=== PATIENT | female | born 1945 | race Caucasian/White ===

== ENCOUNTER → 2017-03-04 | Day surgery (SDC) | payer MEDICARE, BC ==
[2017-03-01 12:04] VITALS: BMI 31.3
[~2017-03-04] MED LIST: ALPRAZolam 0.25 MG TAB PO PRN; ALPRAZolam 0.5 MG TAB PO PRN; ASPIRIN 325 MG TAB PO STA; ATORVASTATIN 80 MG TAB PO STA; IODIXANOL 320 MG/ML 100 ML INTRAARTER ONE; LIDOCAINE 2% INJ 20 MG/ML SQ ONE; MIDAZOLAM 2 MG/2 ML VIAL IV ONE; NITROGLYCERIN SL TABS 0.4 MG TAB SUBLINGUAL PRN; RX INFO: IV CONTRAST WAS GIVEN 1 EACH MISC MISCELLANE PRN; SODIUM CHLORIDE 0.9% 1,000 ML IV SCH; SODIUM CHLORIDE 0.9% 1,000 ML in EMPTY BAG 1 BAG IV ONE
[2017-03-04 07:28] VITALS: RESP 18
[2017-03-04] MEDS: MIDAZOLAM 2 MG/2 ML VIAL IV ONE ×2 (09:08→09:13)
[2017-03-04] MEDS: VERAPAMIL SYRINGE (5 MG/10 ML) INTRAARTER ONE ×2 (09:12→09:29)
--- NOTE | 2017-03-04 13:52 | MISC ---
Dear Dr. Connell: Ms. Mary Madison underwent a heart catheterization and that showed intermediate disease involving the mid LAD. Maximized medical treatment is recommended at this point of time. I want to thank you for allowing me to participate in her care. RAE
--- NOTE | 2017-03-04 14:03 | CC ---
CARDIAC CATHETERIZATION DATE OF PROCEDURE: 03/04/2017 PERFORMING PHYSICIAN: Win Uribe MD, [employer]. PROCEDURE PERFORMED: 1. Selective right and left coronary angiogram. 2. Left heart catheterization. 3. Left ventriculography. INDICATION: This is a pleasant 71-year-old female patient who was diagnosed with cardiomyopathy with an ejection fraction of 40%. She is also known to have pacemaker and she is also known to have paroxysmal atrial fibrillation. APPROACH: Right radial artery. COMPLICATIONS: None. LEVEL OF SEDATION: Moderate with sedation length of 24 minutes. PROCEDURE DESCRIPTION: After obtaining an informed consent, the patient was brought to the cardiac wood and wood products labourer. The right radial artery was cannulated using micropuncture technique , the micropuncture wire passed easily and I placed a 6-Nepali sheath in the right radial artery. After that, I gave the patient 2 mg of verapamil IA and 3000 units of heparin IV. After that, I did selective right and left coronary angiogram using JR4 and JL3.5 catheters. The procedure was completed without any complication. SELECTIVE CORONARY ANGIOGRAM: 1. The right coronary artery is a moderate caliber vessel and it is a nondominant vessel. It is angiographically normal. 2. The left main is a short left main, but it is angiographically normal. It bifurcates into a dominant left circumflex and left anterior descending artery. 3. The left circumflex is a large caliber vessel and it is a dominant vessel. The proximal left circumflex appeared to be angiographically normal and gives rise into first obtuse marginal branch, which appeared to be angiographically normal. The mid left circumflex is normal as well and gives rise into second OM , which appeared to be angiographically normal. The left circumflex distally is normal and bifurcates in PDA and PLV branches and both are angiographically normal. 4. The left anterior descending artery; the proximal LAD appeared to have lesion seems to be in the range of 50%. It gives rise into the first diagonal branch, which is a large caliber vessel with ostial lesion seems to be in the range of 70%. The mid LAD and distal LAD appear to be angiographically normal. HEMODYNAMICS: The left ventricular end-diastolic pressure was ( ) mmHg and no gradient was identified across the aortic valve. LEFT VENTRICULOGRAPHY: The left ventriculography was performed in WALKER projection using a power injection and the left ventricular systolic function is impaired with EF about 40% with anterior hypokinesia. CONCLUSION: 1. Normal right coronary artery. 2. Normal left main coronary artery. 3. Normal and dominant left circumflex. 4. Intermediate disease involving the proximal left anterior descending artery by the bifurcation of the first diagonal branch, which is a large caliber vessel with lesion seems to be in the range of 70%. POSTPROCEDURE MANAGEMENT: 1. Obtain a stress test as an outpatient to evaluate for any ischemia in the anterior and anterolateral wall. 2. Maximize medical treatment. 3. Follow up with the patient. RAE
[2017-03-04 15:12] VITALS: BP 116/55; PULSE 76; TEMP 98.4
== END ==
LOC: CATHCVL 06:23
PROVIDERS: ATTEND Internal Medicine Interventional Cardiology
DX: I25.10 Atherosclerotic heart disease of native coronary artery without angina pectoris (principal); I42.9 Cardiomyopathy, unspecified; I48.0 Paroxysmal atrial fibrillation; I10 Essential (primary) hypertension; E78.00 Pure hypercholesterolemia, unspecified; E78.5 Hyperlipidemia, unspecified; I73.9 Peripheral vascular disease, unspecified; E66.9 Obesity, unspecified; Z68.32 Body mass index [BMI] 32.0-32.9, adult; I49.5 Sick sinus syndrome; I44.39 Other atrioventricular block; Z95.0 Presence of cardiac pacemaker; Z90.49 Acquired absence of other specified parts of digestive tract; Z93.3 Colostomy status; Z82.49 Family history of ischemic heart disease and other diseases of the circulatory system; F17.210 Nicotine dependence, cigarettes, uncomplicated; Z79.82 Long term (current) use of aspirin; Z79.899 Other long term (current) drug therapy; Z88.2 Allergy status to sulfonamides
CPT/HCPCS: 93458; 99152; C1769; C1894; J2001; J2250; Q9967; J1644

== ENCOUNTER → 2017-11-01 | Outpatient (CLI) | payer MEDICARE, BC ==
--- NOTE | 2017-11-01 14:25 | CT ---
EXAMINATION TYPE: CT lumbar spine wo con DATE OF EXAM: 11/01/2017 2:13 PM COMPARISON: NONE HISTORY: Lumbago CT DLP: 1007.8 mGycm Automated exposure control for dose reduction was used. Unenhanced CT of the lumbar spine was performed. Bone and soft tissue window settings are submitted as well as coronal and sagittal reconstructions. Assessment spinal canal limited due to noncontrast L1-L2: There is a vacuum disc compatible severe degenerative disc disease. 3 mm retrolisthesis is no circumferential disc bulging facet arthropathy. Mild bilateral foraminal encroachment. Findings sugge st Canal stenosis. L2-L3: Severe degenerative disc disease with vacuum disc phenomenon and a 4 mm retrolisthesis. Diffus e disc bulging, facet arthropathy and ligamentum flavum hypertrophy contribute to significant canal s tenosis and bilateral foraminal encroachment. L3-L4: Moderate degenerative disc disease. There is advanced facet arthropathy and ligamentum flavum hypertrophy. Diffuse disc bulging is seen with moderate to severe central stenosis. Bilateral foramin al encroachment. L4-L5: Severe degenerative disc disease with discogenic marrow changes. Broad-based central disc prot rusion slightly greater paracentrally left is seen. Advanced facet arthropathy and ligamentum flavum hypertrophy contribute to moderate to severe canal stenosis and bilateral foraminal encroachment. L5-S1: Degenerative disc disease. There is facet arthropathy but no canal stenosis. Neural foramina r emain bilaterally. There are vascular calcifications. There is a 1.4 cm isodense lesion involving the posterior margin of the mid left kidney which should be correlated with ultrasound. Additional 7 mm hypodense lesion involving the upper pole right kidney related to hemorrhagic cyst. T hickening of the adrenal glands noted bilaterally which can be associated with hyperplasia. IMPRESSION: 1. Severe multilevel degenerative disc disease with retrolisthesis at L1-2 and L2-L3. 2. Multilevel facet arthropathy and disc bulging results in multilevel canal stenosis and foraminal e ncroachment. 3. 1.4 cm isodense mass midpole posterior margin left kidney. Ultrasound recommended.
== END ==
LOC: RADCTMAIN 13:49
PROVIDERS: ATTEND Psychiatry & Neurology Neurology
DX: M48.061 Spinal stenosis, lumbar region without neurogenic claudication (principal); M51.26 Other intervertebral disc displacement, lumbar region; M43.16 Spondylolisthesis, lumbar region; M51.36 Other intervertebral disc degeneration, lumbar region; M46.96 Unspecified inflammatory spondylopathy, lumbar region; Z88.2 Allergy status to sulfonamides
CPT/HCPCS: 72131

== ENCOUNTER 2018-06-27 09:20 | Day surgery (SDC) | payer MEDICARE, BC ==
[2018-06-20 11:44] VITALS: BMI 31.9
[~2018-06-27 09:20] MED LIST changes: -ALPRAZolam 0.25 MG TAB PO PRN; -ALPRAZolam 0.5 MG TAB PO PRN; -ASPIRIN 325 MG TAB PO STA; -ATORVASTATIN 80 MG TAB PO STA; -IODIXANOL 320 MG/ML 100 ML INTRAARTER ONE; -LIDOCAINE 2% INJ 20 MG/ML SQ ONE; -MIDAZOLAM 2 MG/2 ML VIAL IV ONE; -NITROGLYCERIN SL TABS 0.4 MG TAB SUBLINGUAL PRN; -RX INFO: IV CONTRAST WAS GIVEN 1 EACH MISC MISCELLANE PRN; -SODIUM CHLORIDE 0.9% 1,000 ML in EMPTY BAG 1 BAG IV ONE; +ceFAZolin 1,000 MG in SODIUM CHLORIDE 0.9% IRRIGATIO 250 ML IRRIGATION ONE; +ceFAZolin IN SWFI 2 GM/20 ML SYRINGE IVP ONE
[2018-06-27 09:50] VITALS: TEMP 98.6
[2018-06-27] MEDS ORDERED: LIDOCAINE 1% INJ 10MG/ML (20 ML MDV) ONE ×2 (10:43→10:53)
[2018-06-27] MEDS ORDERED: fentaNYL (PF) 50 MCG/ML 2 ML AMP ONE (10:58)
[2018-06-27] MEDS ORDERED: MIDAZOLAM 2 MG/2 ML VIAL ONE (10:58)
[2018-06-27] MEDS: MIDAZOLAM 2 MG/2 ML VIAL IV ONE ×2 (11:00→11:32)
[2018-06-27] MEDS: fentaNYL (PF) 50 MCG/ML 2 ML AMP IV ONE ×2 (11:00→11:32)
[2018-06-27] MEDS ORDERED: LIDOCAINE 1% INJ 10MG/ML (20 ML MDV) SQ ONE ×2 (11:04→11:33)
[2018-06-27] MEDS ORDERED: HYDROcodone/APAP 5-325MG 1 EACH TAB PO PRN (11:55)
[2018-06-27] MEDS ORDERED: ACETAMINOPHEN TAB 325 MG TAB PO PRN (11:55)
[2018-06-27 14:48] VITALS: BP 136/62; PULSE 78; RESP 18
--- NOTE | 2018-06-27 16:05 | P.PCN ---
Date of Procedure: 06/27/18 Preoperative Diagnosis: Battery depletion Postoperative Diagnosis: The same Procedure(s) Performed: Dual-chamber pulse generator change, temporary pacemaker implantation Description of Procedure: TEMPORARY PACEMAKER IMPLANTATION: This patient who is pacemaker dependent has reached MYKEL requiring battery replacement. Patient is advised to have temporary pacemaker during the battery change. Patient was brought to the lab in a fasting state. She was prepped and draped in the usual fashion. The right groin is infiltrated with lidocaine. Right femoral vein was entered using Seldinger technique and a 6-Slovak sheath was left in place. A 5-Slovak balloontipped temporary pacemaker wire was advanced through the sheath under fluoroscopy and was placed at the apex of the right ventricle. Satisfactory thresholds were obtained. The pacemaker was set at rate of 40 and output of 30. Patient tolerated the procedure well. No complications. Final impression: Successful implantation of temporal pacemaker without complications. PULSE GENERATOR CHANGE: HISTORY: This patient with history of dual-chamber permanent pacemaker implantation has reached MYKEL. Patient is advised to have generator change CONSENT: I have discussed the risks and benefits as related to the above mentioned procedure and both sedation/analgesia as well as necessary blood product administration. The patient has indicated understanding and acceptance of the risks of the procedure discussed. PROCEDURE: Patient was brought to the lab in a fasting state. Patient was given IV Versed and fentanyl for sedation. The skin over the existing pulse generator was infiltrated with lidocaine. An incision was made in the skin and was deepened until the pectoral fascia was exposed. Hemostasis was obtained. The existing pulse generator was pulled out of the pocket. The leads were disconnected and were checked for thresholds. Conscious Sedation: Versed 1.5 mg Fentanyl 50 g Duration 50 minutes THRESHOLDS: ATRIAL: The minimum pacing threshold was 0.5 V at a pulse width of 0.5 ms. The impedance is 381 ohms P-wave: 3 mV VENTRICULAR: The minimal patient threshold was 1 V at a pulse width of 0.5 ms. Impedance is 480 ohms R-wave: 7.6 mV THE LEADS: ATRIAL: This is manufactured by [employer] lead model number is 5076/45 and the serial number is [id number] VENTRICULAR: This is manufactured by [employer]. Model number is 5076/52. Serial number is [id number] THE EXPLANTED DEVICE: This is manufactured by [employer]. Model number is [id number] and the serial number is [id number] THE NEW DEVICE:. This is manufactured by [employer]. Model number is [id number] and the serial number is [id number]. The leads were then connected to a new pulse generator. Pacemaker seems to function normally. The pocket was irrigated with antibiotics. The pocket was closed in the usual fashion. Pectoral fascia was closed with 2-0 Prolene, the subcutaneous tissue was closed with 3-0 Prolene and the skin was closed with 4- 0 Prolene. Patient tolerated the procedure well . Patient will be monitored on the telemetry unit for 2-3 hours. If stable patient be discharged home later today. PLAN: Continue monitoring her for next 2 hours. If stable patient will be discharged home to continue home medications. She is given a prescription for pain medication and also prophylactic antibiotics. The patient will keep the initiation and dry until seen in the office in one week. FALLOW UP: With Dr. Zamudio in one week
== END 2018-06-27 16:00 | disposition home or self-care (01) ==
LOC: CATHEP 09:20
PROVIDERS: ATTEND Internal Medicine Cardiovascular Disease
DX: I25.5 Ischemic cardiomyopathy (principal); Z45.010 Encounter for checking and testing of cardiac pacemaker pulse generator [battery]; I25.10 Atherosclerotic heart disease of native coronary artery without angina pectoris; I10 Essential (primary) hypertension; I48.2 Chronic atrial fibrillation; E78.5 Hyperlipidemia, unspecified; I73.9 Peripheral vascular disease, unspecified; Z82.49 Family history of ischemic heart disease and other diseases of the circulatory system; Z87.891 Personal history of nicotine dependence; E66.9 Obesity, unspecified; Z68.32 Body mass index [BMI] 32.0-32.9, adult; I49.5 Sick sinus syndrome; Z79.82 Long term (current) use of aspirin; Z79.899 Other long term (current) drug therapy; Z88.2 Allergy status to sulfonamides
CPT/HCPCS: 33228; C1769 ×3; C1894; C1785; J2250; J2001; J3010; J0690

== ENCOUNTER 2018-11-17 12:17 | Day surgery (SDC) | payer MEDICARE, BC ==
[2018-11-07 18:09] VITALS: BMI 30.9
[~2018-11-17 12:17] MED LIST changes: +HYDROmorphone 0.5 MG/0.5 ML SYRINGE IVP PRN; +LACTATED RINGERS 1,000 ML IV SCH; +MORPHINE SULFATE 2 MG/ML SYRINGE IV PRN; +ONDANSETRON 4 MG/2 ML VIAL IVP PRN; +Pre Op ABX Message 1 EACH MISC MISCELLANE ONE; -SODIUM CHLORIDE 0.9% 1,000 ML IV SCH; -ceFAZolin 1,000 MG in SODIUM CHLORIDE 0.9% IRRIGATIO 250 ML IRRIGATION ONE; -ceFAZolin IN SWFI 2 GM/20 ML SYRINGE IVP ONE
[2018-11-17 12:56] VITALS: RESP 18; TEMP 97.9
[2018-11-17] MEDS ORDERED: LIDOCAINE 1% 20 ML VIAL (10MG/ML) FOR IV START INTRADERMA ONE (12:57)
[2018-11-17] MEDS ORDERED: PROPOFOL 10 MG/ML 20 ML VIAL IV ONE (14:51)
[2018-11-17] MEDS ORDERED: MIDAZOLAM 2 MG/2 ML VIAL ONE (14:51)
[2018-11-17] MEDS ORDERED: fentaNYL (PF) 50 MCG/ML 2 ML AMP ONE (14:51)
[2018-11-17] MEDS ORDERED: LIDOCAINE 1%-EPI 1:100,000 20 ML VIAL SQ ONE ×2 (15:17)
[2018-11-17 16:26] VITALS: PULSE 77
[2018-11-17 16:42] VITALS: BP 121/61
--- NOTE | 2018-11-17 17:40 | P.OP ---
Date of Procedure: 11/17/18 Preoperative Diagnosis: 1. Right trigger thumb 2. Right index trigger finger 3. Right middle trigger finger Postoperative Diagnosis: 1. Right trigger thumb 2. Right index trigger finger 3. Right middle trigger finger Procedure(s) Performed: 1. Right trigger thumb release 2. Right index trigger finger release 3. Right middle trigger finger release Anesthesia: MAC, local Surgeon: Rob Mathew Estimated Blood Loss (ml): 3 Pathology: none sent Condition: stable Disposition: PACU Indications for Procedure: The patient is a pleasant 73-year-old female who was diagnosed with right index and middle trigger fingers and a right trigger thumb. Treatment options (and associated risks and benefits) were discussed in the office. The patient elected to proceed with surgical release. In preop, the patient denied any additional questions or concerns. Consent forms were signed. The operative sites were confirmed and marked. Description of Procedure: The patient was positioned supine with the operative limb on an arm board. Monitored anesthesia was administered. Using aseptic technique, local anesthetic was injected into the subcutaneous tissues tissues around the planned incisions. A tourniquet was placed on the right upper extremity which was then prepped and draped in standard, sterile fashion. A timeout was performed which confirmed the patient, this operative side, the sites and the procedures to be performed: all team members expressed agreement. The hand was exsanguinated with an Esmarch and the tourniquet was inflated. The thumb was approached first. Loupe magnification was utilized throughout the case for optimum visualization. A transverse incision was marked in the MCP flexion crease. Skin was sharply incised. Spreading dissection was utilized. The neurovascular bundles on both sides were identified and protected throughout the case. The ulnar digital nerve was identified fairly close to the ulnar border of the mily. The A1 mily was identified and found to be quite thickened. This was released longitudinally with a scalpel. The proximal portion of the oblique mily was also released. Synovial adhesions over the tendon proximal to the mily were released with scissors. The tendon was gently elevated out of the wound with a Ragnell retractor and showed good excursion with excellent passive flexion of the IP joint. The tendon was released and allowed to retract back to its anatomic position. The wound was covered and attention was turned to the index finger. A longitudinal incision was marked over the A1 mily of the index finger. The skin was sharply incised. Blunt, spreading dissection proceeded down flexor sheath, taking care to protect the adjacent neurovascular bundles. The A1 mily was identified. The mily was found to be quite stenosed with thickened synovial adhesions along the flexor sheath. The mily was incised longitudinally. Due to the amount of constriction, the proximal aspect of the A2 mily was also released. There was no substantial fraying of the tendons. The flexor tendons were elevated out of the wound with Ragnell retractors. There were moderate, thickened inter-tendinous synovial adhesions which were sharply resected with scissors. The tendons were released and allowed to retract back to their anatomic position. Passive motion of the digit demonstrated smooth tendon gliding without appreciable catching, triggering or focal restriction. The procedure was repeated for the middle finger. There was a moderate amount of thickened, fibrous tissue overlying the mily. This was resected. Once the mily was released, the thickened leaflets were still causing some impingement on the tendons and these were partially resected. The tourniquet was released. Good hemostasis was confirmed. The patient was asked to actively flex the thumb, index and middle fingers. There was no palpable catching or triggering and the patient denied any sensations of triggering. The wounds were copiously irrigated with normal saline. The incisions were closed with interrupted 5-0 nylon sutures. A soft, sterile dressing was applied. All sponge, needle and instrument counts were correct at the end the case. The patient tolerated the procedure well and was transferred to recovery in stable condition.
== END 2018-11-17 16:55 | disposition home or self-care (01) ==
LOC: OR 12:17
PROVIDERS: ATTEND Orthopaedic Surgery
DX: M65.311 Trigger thumb, right thumb (principal); M65.321 Trigger finger, right index finger; M65.331 Trigger finger, right middle finger; I13.10 Hypertensive heart and chronic kidney disease without heart failure, with stage 1 through stage 4 chronic kidney disease, or unspecified chronic kidney disease; N18.3 Chronic kidney disease, stage 3 (moderate); F17.210 Nicotine dependence, cigarettes, uncomplicated; E78.5 Hyperlipidemia, unspecified; I48.91 Unspecified atrial fibrillation; Z95.0 Presence of cardiac pacemaker; F32.9 Major depressive disorder, single episode, unspecified; Z79.82 Long term (current) use of aspirin; Z79.890 Hormone replacement therapy; Z79.891 Long term (current) use of opiate analgesic; Z79.899 Other long term (current) drug therapy; Z88.2 Allergy status to sulfonamides
CPT/HCPCS: 26055 ×3; J2250; J2405; J3010; J2704